=== PATIENT | female | born 1950 | race Caucasian/White ===

== ENCOUNTER 2017-11-11 17:23 | Emergency (ER) | payer MEDICARE ==
[2017-11-11] MEDS: PERCOCET 5MG/325MG TAB PO (19:30)
[2017-11-11] MEDS: ALBUTEROL SULFATE 2.5 MG/0.5 ML INH NEB SOLN NEB (19:58)
[2017-11-11] MEDS: OXYCODONE/APAP 5MG/325MG(BULK FOR ED) 1 TABLET PO (20:45)
== END 2017-11-11 21:04 | disposition home or self-care (01) ==
LOC: M ED 17:23
DX: J18.1 Lobar pneumonia, unspecified organism (principal); S20.212A Contusion of left front wall of thorax, initial encounter; W19.XXXA Unspecified fall, initial encounter; Y92.89 Other specified places as the place of occurrence of the external cause; Y93.89 Activity, other specified; Y99.8 Other external cause status; I10 Essential (primary) hypertension; E78.5 Hyperlipidemia, unspecified; J44.9 Chronic obstructive pulmonary disease, unspecified; E03.9 Hypothyroidism, unspecified; F41.9 Anxiety disorder, unspecified; F33.9 Major depressive disorder, recurrent, unspecified; Z79.899 Other long term (current) drug therapy; Z88.0 Allergy status to penicillin
CPT/HCPCS: 71101

== ENCOUNTER → 2017-11-19 | Outpatient (CLI) | payer MEDICARE | LOC: M RAD 12:57 | DX: J18.9 Pneumonia, unspecified organism (principal) | CPT/HCPCS: 71046 ==

== ENCOUNTER → 2019-09-28 | Outpatient (CLI) | payer MEDICARE ==
[~2019-09-28] MED LIST: AMLO10TA5; ATOR1TAB21; COMBAER6 INH; HYDR12CA; HYDR1CAP25; LEVO125T4; LOSA100T50; PARO40TA2; PERC5TAB12 PO; SPIR1CAP INH; ZITHTAB PO
--- NOTE | 2019-09-28 10:23 | REP ---
Clinical: Lung screening. History smoking. Comparison: 10/06/2013 Technique: Axial low-dose noncontrast images from the thoracic inlet to the upper abdomen using lung screening technique. Findings: The lung castellanos are well-aerated. No consolidation, significant nodule or mass lesion is appreciated. Calcified nodule in the right upper lobe along with noncalcified nodule along the medial subpleural right lower lobe (image 55) remains stable. No pleural effusion/reaction or pneumothorax. Tracheobronchial tree is patent. Mediastinum demonstrates mild atherosclerotic changes of the coronary arteries without cardiomegaly. Impression: Lung-RADS category I. No significant nodule or suspicious abnormality. Management recommendations include annual low-dose CT reevaluation. Electronically Signed by Fam Reyna MD 09/28/2019 10:15 A
== END ==
LOC: M RAD 09:24
PROVIDERS: ATTEND Internal Medicine
DX: F17.210 Nicotine dependence, cigarettes, uncomplicated (principal)

== ENCOUNTER 2019-10-21 09:41 | Day surgery (SDC) | payer MEDICARE ==
[~2019-10-21] VITALS: Ht 170.2 cm; Wt 77.1 kg
[~2019-10-21 09:41] MED LIST changes: -AMLO10TA5; +AMLO10TA5 PO; -ATOR1TAB21; +ATOR1TAB21 PO; -HYDR1CAP25; +HYDR1CAP25 PO; +LIDOCAINE 2% INJ 100 MG/5 ML SDV (FOR ANES.) As Ordered ONE; -LOSA100T50; +LOSA100T50 PO; +NS 1,000 ML IV ONE; -PARO40TA2; +PARO40TA2 PO; +PROPOFOL 200 MG/20 ML VIAL As Ordered ONE; +SYNT150T PO
[2019-10-21] MEDS ORDERED: PROPOFOL 200 MG/20 ML VIAL As Ordered ONE ×2 (10:50→11:06)
--- NOTE | 2019-10-21 11:32 | ROOR ---
Patient Name: Rose Gil Procedure Date: 10/21/2019 10:39 AM Date of : 1950 Age: 69 Room: [facility] Gender: Female Note Status: Finalized Procedure: Total Colonoscopy to Cecum + Cold Snare Polypectomy + Hemoclips Indications: Screening for colorectal malignant neoplasm Providers: Kyle Castellanos MD Referring MD: Sally Schultz DO Requesting Provider: Medicines: Monitored Anesthesia Care Complications: No immediate complications. Procedure: Pre-Anesthesia Assessment: - The heart rate, respiratory rate, oxygen saturations, blood pressure, adequacy of pulmonary ventilation, and response to care were monitored throughout the procedure. The Colonoscope was introduced through the anus and advanced to the cecum, identified by appendiceal orifice and ileocecal valve. The colonoscopy was performed without difficulty. The patient tolerated the procedure well. The quality of the bowel preparation was excellent. Findings: The perianal and digital rectal examinations were normal. Non-bleeding internal hemorrhoids were found during retroflexion. The hemorrhoids were small and Grade I (internal hemorrhoids that do not prolapse). Scattered small-mouthed diverticula were found in the recto-sigmoid colon, sigmoid colon and descending colon. A small polyp was found in the transverse colon. The polyp was sessile. The polyp was removed with a cold snare. Resection and retrieval were complete. To prevent bleeding after the polypectomy, one hemostatic clip was successfully placed (MR conditional). There was no bleeding at the end of the procedure. A small polyp was found in the hepatic flexure. The polyp was sessile. The polyp was removed with a cold snare. Resection and retrieval were complete. To prevent bleeding after the polypectomy, one hemostatic clip was successfully placed (MR conditional). There was no bleeding at the end of the procedure. The exam was otherwise without abnormality on direct and retroflexion views. Multiple small localized angioectasias were found in the ascending colon. Impression: - Non-bleeding internal hemorrhoids. - Diverticulosis in the recto-sigmoid colon, in the sigmoid colon and in the descending colon. - One small polyp in the transverse colon, removed with a cold snare. Resected and retrieved. Clip (MR conditional) was placed. - One small polyp at the hepatic flexure, removed with a cold snare. Resected and retrieved. Clip (MR conditional) was placed. - The examination was otherwise normal on direct and retroflexion views. - Multiple colonic angioectasias. - The exam was otherwise normal to the cecum. Recommendation: - Patient has a contact number available for emergencies. The signs and symptoms of potential delayed complications were discussed with the patient. Return to normal activities tomorrow. Written discharge instructions were provided to the patient. - High fiber diet. - Discharge patient to home. - Continue present medications. - Await pathology results. - Telephone GI clinic for pathology results in 1 week. - Repeat colonoscopy in 5 years for surveillance based on pathology results. - Return to referring physician. - The findings and recommendations were discussed with the patient's family. Kyle Castellanos MD Kyle Castellanos MD 10/21/2019 11:31:58 AM Electronically signed by Kyle Castellanos MD Number of Addenda: 0 Note Initiated On: 10/21/2019 10:39 AM Estimated Blood Loss: Estimated blood loss: none.
[2019-10-21 11:45] VITALS: BP 143/73
== END 2019-10-22 12:01 | disposition home or self-care (01) ==
LOC: M OPP 09:41
PROVIDERS: ATTEND Internal Medicine Gastroenterology
DX: Z12.11 Encounter for screening for malignant neoplasm of colon (principal); K64.0 First degree hemorrhoids; D12.3 Benign neoplasm of transverse colon; K55.20 Angiodysplasia of colon without hemorrhage; K57.30 Diverticulosis of large intestine without perforation or abscess without bleeding; F17.210 Nicotine dependence, cigarettes, uncomplicated; Z79.899 Other long term (current) drug therapy; Z88.0 Allergy status to penicillin

== ENCOUNTER 2021-11-21 11:24 | Inpatient (IN) | payer MEDICARE ==
[~2021-11-21] VITALS: Ht 170.2 cm; Wt 80.4 kg
[~2021-11-21 11:24] MED LIST changes: -AMLO10TA5 PO; +AMLO1TAB25 PO; -LIDOCAINE 2% INJ 100 MG/5 ML SDV (FOR ANES.) As Ordered ONE; +LOSA100T45 PO; -LOSA100T50 PO; -NS 1,000 ML IV ONE; -PROPOFOL 200 MG/20 ML VIAL As Ordered ONE
[2021-11-21] MEDS ORDERED: ALBU8.5H (12:00)
[2021-11-21] MEDS ORDERED: ALBUTEROL 90 MCG/ACT 8GM HFA INHALER INH ONE (16:55)
[2021-11-21] MEDS ORDERED: methylPREDNISolone 125MG 2ML VIAL IV ONE (16:55)
[2021-11-21] MEDS ORDERED: NS 1,000 ML IV ONE (16:55)
[2021-11-21 17:34] LABS: BASO # 0.1 10^3/uL (0.0-0.2); BASO % 0.6 % (0.0-1.0); EOS # 0.1 10^3/uL (0.0-0.5); EOS % 0.7 % (0.0-3.0); HEMATOCRIT 45.6 % (36.0-47.0); LYMPH # 2.1 10^3/uL (1.5-5.0); LYMPH % 25.2 % (24.0-44.0); MEAN CORPUSCULAR HEMOGLOBIN 29.8 pg (27.0-33.0); MEAN CORPUSCULAR HGB CONC 32.9 g/dl (32.0-36.5); MEAN CORPUSCULAR VOLUME 90.7 fl (80.0-96.0); MONO % 11.4 % (2.0-8.0); NEUTROPHILS # 5.2 10^3/uL (1.5-8.5); NEUTROPHILS % 61.7 % (36.0-66.0); PLATELET COUNT, AUTOMATED 194 10^3/uL (150-450); RED BLOOD COUNT 5.03 10^6/uL (4.00-5.40); WHITE BLOOD COUNT 8.4 10^3/uL (4.0-10.0)
[2021-11-21 18:17] LABS: BILIRUBIN,DIRECT 0.1 MG/DL (0.0-0.2); BILIRUBIN,TOTAL 0.4 MG/DL (0.2-1.0); CALCIUM LEVEL 9.2 MG/DL (8.8-10.2); CREATININE FOR GFR 1.04 MG/DL (0.55-1.30); GLOMERULAR FILTRATION RATE 55.6 (>39); POTASSIUM SERUM 3.8 MEQ/L (3.5-5.1); THYROID STIMULATING HORMONE 0.4 uIU/ML (0.358-3.740); THYROXINE (T4) 15.8 UG/DL (4.5-12.0); TOTAL PROTEIN 7.5 GM/DL (6.4-8.2)
[2021-11-21] MEDS ORDERED: MOM 30ML SUSPENSION UDC PO PRN (20:30)
[2021-11-21] MEDS ORDERED: LEVALBUTEROL 1.25 MG/0.5 ML CONCENTRATE NEB NEB PRN (20:30)
[2021-11-21] MEDS ORDERED: MAALOX 30 ML SUSP *UDC PO PRN (20:30)
[2021-11-21] MEDS ORDERED: ACETAMINOPHEN TAB 650MG DOSE (2X325MG) PO PRN (20:30)
[2021-11-21 20:51] LABS: MAGNESIUM LEVEL 2.3 MG/DL (1.8-2.4)
[2021-11-21] MEDS: IPRATROPIUM 0.5MG/ALBUTEROL 2.5MG INH SOL UD 3ML (DUONEB) NEB SCH (21:14)
[2021-11-21 21:28] LABS: INR 0.96; PROTHROMBIN TIME 13.2 SECONDS (12.7-14.5)
[2021-11-21 21:29] LABS: PARTIAL THROMBOPLASTIN TIME 39.3 SECONDS (25.9-37.0)
[2021-11-21] MEDS ORDERED: PROAAER10 INH (21:50)
[2021-11-21] MEDS ORDERED: AMLO1TAB25 PO (21:50)
[2021-11-21] MEDS ORDERED: HOME MED LIST COMPLETE! XX SCH (21:50)
[2021-11-21] MEDS ORDERED: LOSA100T45 PO (21:50)
[2021-11-21] MEDS ORDERED: PARO40TA2 PO (21:50)
[2021-11-21] MEDS ORDERED: COMBAER6 INH (21:50)
[2021-11-21] MEDS ORDERED: SYNT137T7 PO (21:50)
[2021-11-21] MEDS ORDERED: ATOR40TA75 PO (21:50)
[2021-11-21 22:45] VITALS: BP 134/81
[2021-11-21] MEDS: DOXYCYCLINE HYCLATE 100MG TABLET PO SCH (23:05)
[2021-11-21 23:15] VITALS: O2SAT 92
[2021-11-22] VITALS (8 sets, daily range): BP systolic 133–167; BP diastolic 62–78; O2SAT 86–93
[2021-11-22] MEDS: methylPREDNISolone 40MG 1ML VIAL IV SCH ×3 (00:16→17:17)
[2021-11-22] MEDS: IPRATROPIUM 0.5MG/ALBUTEROL 2.5MG INH SOL UD 3ML (DUONEB) NEB SCH ×4 (02:53→19:39)
[2021-11-22] MEDS: LEVOTHYROXINE 137MCG TABLET (0.137MG) PO SCH (05:30)
[2021-11-22 07:14] LABS: HEMATOCRIT 44.8 % (36.0-47.0); HEMOGLOBIN 14.4 g/dl (12.0-15.5); MEAN CORPUSCULAR HEMOGLOBIN 29.6 pg (27.0-33.0); MEAN CORPUSCULAR HGB CONC 32.1 g/dl (32.0-36.5); MEAN CORPUSCULAR VOLUME 92.2 fl (80.0-96.0); PLATELET COUNT, AUTOMATED 180 10^3/uL (150-450); RED BLOOD COUNT 4.86 10^6/uL (4.00-5.40); WHITE BLOOD COUNT 5.7 10^3/uL (4.0-10.0)
[2021-11-22 07:41] LABS: BLOOD UREA NITROGEN 14 MG/DL (7-18); CALCIUM LEVEL 8.9 MG/DL (8.8-10.2); CARBON DIOXIDE LEVEL 24 MEQ/L (21-32); CHLORIDE LEVEL 110 MEQ/L (98-107); CREATININE FOR GFR 0.84 MG/DL (0.55-1.30); GLOMERULAR FILTRATION RATE > 60.0 (>39); GLUCOSE, FASTING 161 MG/DL (70-100); MAGNESIUM LEVEL 2.3 MG/DL (1.8-2.4); POTASSIUM SERUM 3.9 MEQ/L (3.5-5.1); SODIUM LEVEL 141 MEQ/L (136-145)
[2021-11-22] MEDS: PARoxetine 20MG TABLET PO SCH (09:26)
[2021-11-22] MEDS: DOXYCYCLINE HYCLATE 100MG TABLET PO SCH (09:26)
[2021-11-22] MEDS: LOSARTAN 50MG TABLET PO SCH (09:26)
[2021-11-22] MEDS: ATORVASTATIN 20 MG TAB PO SCH (09:26)
[2021-11-22] MEDS: ENOXAPARIN 40MG/0.4ML SYRINGE (J1650 PER 10MG) SC SCH (09:27)
[2021-11-23] MEDS: methylPREDNISolone 40MG 1ML VIAL IV SCH ×3 (00:56→18:38)
[2021-11-23 01:22] VITALS: O2SAT 91
[2021-11-23] MEDS: IPRATROPIUM 0.5MG/ALBUTEROL 2.5MG INH SOL UD 3ML (DUONEB) NEB SCH ×4 (02:00→20:45)
[2021-11-23] MEDS: LEVOTHYROXINE 137MCG TABLET (0.137MG) PO SCH (05:24)
[2021-11-23 06:00] VITALS: BP 150/65
[2021-11-23 06:10] LABS: HEMATOCRIT 46.2 % (36.0-47.0); HEMOGLOBIN 14.7 g/dl (12.0-15.5); MEAN CORPUSCULAR HEMOGLOBIN 29.8 pg (27.0-33.0); MEAN CORPUSCULAR HGB CONC 31.8 g/dl (32.0-36.5); MEAN CORPUSCULAR VOLUME 93.7 fl (80.0-96.0); PLATELET COUNT, AUTOMATED 225 10^3/uL (150-450); RED BLOOD COUNT 4.93 10^6/uL (4.00-5.40)
[2021-11-23 06:29] LABS: BLOOD UREA NITROGEN 20 MG/DL (7-18); CALCIUM LEVEL 9.3 MG/DL (8.8-10.2); CARBON DIOXIDE LEVEL 28 MEQ/L (21-32); CHLORIDE LEVEL 107 MEQ/L (98-107); CREATININE FOR GFR 0.91 MG/DL (0.55-1.30); GLOMERULAR FILTRATION RATE > 60.0 (>39); GLUCOSE, FASTING 136 MG/DL (70-100); MAGNESIUM LEVEL 2.4 MG/DL (1.8-2.4); POTASSIUM SERUM 3.9 MEQ/L (3.5-5.1); SODIUM LEVEL 140 MEQ/L (136-145)
[2021-11-23 07:43] LABS: BASO % 0.1 % (0.0-1.0); EOS % 0.1 % (0.0-3.0); LYMPH # 1.4 10^3/uL (1.5-5.0); LYMPH % 6.1 % (24.0-44.0); MONO # 0.6 10^3/uL (0.0-0.8); MONO % 2.6 % (2.0-8.0); NEUTROPHILS # 20.8 10^3/uL (1.5-8.5); NEUTROPHILS % 90.2 % (36.0-66.0)
[2021-11-23] MEDS: PARoxetine 20MG TABLET PO SCH (09:21)
[2021-11-23] MEDS: ATORVASTATIN 20 MG TAB PO SCH (09:21)
[2021-11-23] MEDS: ENOXAPARIN 40MG/0.4ML SYRINGE (J1650 PER 10MG) SC SCH (09:22)
[2021-11-23] MEDS: LOSARTAN 50MG TABLET PO SCH (09:22)
[2021-11-23 14:00] VITALS: BP 131/73
[2021-11-23 22:00] VITALS: BP 134/72
[2021-11-24] MEDS: methylPREDNISolone 40MG 1ML VIAL IV SCH ×2 (01:20→09:50)
[2021-11-24] MEDS: IPRATROPIUM 0.5MG/ALBUTEROL 2.5MG INH SOL UD 3ML (DUONEB) NEB SCH ×2 (01:29→07:51)
[2021-11-24] MEDS: LEVOTHYROXINE 137MCG TABLET (0.137MG) PO SCH (05:38)
[2021-11-24 05:54] VITALS: BP 133/65
[2021-11-24 06:48] LABS: HEMATOCRIT 44.1 % (36.0-47.0); HEMOGLOBIN 13.8 g/dl (12.0-15.5); MEAN CORPUSCULAR HEMOGLOBIN 29.2 pg (27.0-33.0); MEAN CORPUSCULAR HGB CONC 31.3 g/dl (32.0-36.5); MEAN CORPUSCULAR VOLUME 93.2 fl (80.0-96.0); PLATELET COUNT, AUTOMATED 198 10^3/uL (150-450); RED BLOOD COUNT 4.73 10^6/uL (4.00-5.40); WHITE BLOOD COUNT 17.6 10^3/uL (4.0-10.0)
[2021-11-24 07:16] LABS: BLOOD UREA NITROGEN 24 MG/DL (7-18); CALCIUM LEVEL 8.9 MG/DL (8.8-10.2); CARBON DIOXIDE LEVEL 25 MEQ/L (21-32); CHLORIDE LEVEL 107 MEQ/L (98-107); CREATININE FOR GFR 0.93 MG/DL (0.55-1.30); GLOMERULAR FILTRATION RATE > 60.0 (>39); GLUCOSE, FASTING 141 MG/DL (70-100); MAGNESIUM LEVEL 2.4 MG/DL (1.8-2.4); POTASSIUM SERUM 3.7 MEQ/L (3.5-5.1); SODIUM LEVEL 141 MEQ/L (136-145)
[2021-11-24] MEDS: ENOXAPARIN 40MG/0.4ML SYRINGE (J1650 PER 10MG) SC SCH (09:00)
[2021-11-24 09:50] VITALS: BP 152/99
[2021-11-24] MEDS: LOSARTAN 50MG TABLET PO SCH (09:50)
[2021-11-24] MEDS: ATORVASTATIN 20 MG TAB PO SCH (09:50)
[2021-11-24] MEDS: PARoxetine 20MG TABLET PO SCH (09:50)
[2021-11-24] MEDS ORDERED: guaiFENesin ER 600 MG TAB PO SCH (10:00)
[2021-11-24] MEDS ORDERED: PRED10TA2 PO (11:15)
[2021-11-24] MEDS ORDERED: MUCI600T31 PO (11:15)
== END 2021-11-24 14:16 | disposition home or self-care (01) | DRG 192 ==
LOC: M ED 11:24 → M ED INP 20:28 → M MSPAV 22:43
PROVIDERS: ADMIT Internal Medicine; ATTEND Internal Medicine
DX: J44.1 Chronic obstructive pulmonary disease with (acute) exacerbation (principal); I10 Essential (primary) hypertension; E78.5 Hyperlipidemia, unspecified; E03.9 Hypothyroidism, unspecified; F32.A Depression, unspecified; F41.9 Anxiety disorder, unspecified; J06.9 Acute upper respiratory infection, unspecified; B97.29 Other coronavirus as the cause of diseases classified elsewhere; K59.00 Constipation, unspecified; F17.200 Nicotine dependence, unspecified, uncomplicated; Z88.0 Allergy status to penicillin; Z86.718 Personal history of other venous thrombosis and embolism; Z79.899 Other long term (current) drug therapy

== ENCOUNTER → 2021-12-04 | Outpatient (REF) | payer MEDICARE ==
[~2021-12-04] MED LIST changes: +ALBU8.5H; +ATOR40TA75 PO; +MUCI600T31 PO; +PRED10TA2 PO; +PROAAER10 INH; +SYNT137T7 PO
== END ==
LOC: M LAB REF 16:21
PROVIDERS: ATTEND Internal Medicine
DX: R79.82 Elevated C-reactive protein (CRP) (principal)

== ENCOUNTER → 2022-08-29 | Outpatient (REF) | payer MEDICARE, MEDICAID | LOC: M LAB REF 13:25 | PROVIDERS: ATTEND Ophthalmology | DX: H02.9 Unspecified disorder of eyelid (principal) ==

== ENCOUNTER → 2023-01-09 | Outpatient (CLI) | payer MEDICARE, MEDICAID ==
[~2023-01-09] MED LIST changes: +ONETAB20 PO; +PROA1AER2 IN
== END ==
LOC: M LABSMTC 11:43
PROVIDERS: ATTEND Anesthesiology
DX: Z01.818 Encounter for other preprocedural examination (principal)

== ENCOUNTER 2023-01-14 08:29 | Day surgery (SDC) | payer MEDICARE, MEDICAID ==
[~2023-01-14] VITALS: Ht 170.2 cm; Wt 80.3 kg
[~2023-01-14 08:29] MED LIST changes: +BSS IRRIG/VANCO(10MG)/TOBRA(5MG)/EPINEPH(1:1000-0.5CC)500ML BAG-ORONLY IR ONE; +CEFUROXIME 1MG/0.1ML INTRACAMERAL INJ As Ordered ONE; +CYCLOPENTOLATE 1% OPHTH SOLN 2ML BTL OS SCH; +LIDOCAINE 1% SDV 5ML VIAL As Ordered ONE; +LIDOCAINE 3.5 % 1ML OPHTH TOPICAL GEL OU ONE; +OFLOXACIN 0.3 % (OCUFLOX) OPTH SOL 5ML OS ONE; +PHENYLEPHRINE 10% OPHTH SOL 5ML OS PRN; +PHENYLEPHRINE 2.5% OPHTH SOL 2ML OS SCH; +TROPICAMIDE 1% OPHTH SOLN 15ML OS SCH
[2023-01-14] MEDS ORDERED: fentaNYL 100 MCG/2 ML INJECTION As Ordered ONE (10:04)
[2023-01-14] MEDS ORDERED: MIDAZOLAM INJ 2MG/2ML VIAL As Ordered ONE (10:04)
[2023-01-14 10:22] VITALS: BP 140/63
[2023-01-14] MEDS ORDERED: ACETYLCHOLINE OPHTH SOLN 1% 2ML (MIOCHOL-E) As Ordered ONE (11:18)
== END 2023-01-14 10:57 | disposition home or self-care (01) ==
LOC: M SDC 08:29
PROVIDERS: ATTEND Ophthalmology
DX: H25.12 Age-related nuclear cataract, left eye (principal); I10 Essential (primary) hypertension; E78.5 Hyperlipidemia, unspecified; Z86.718 Personal history of other venous thrombosis and embolism; F32.A Depression, unspecified; Z98.51 Tubal ligation status; J44.9 Chronic obstructive pulmonary disease, unspecified; Z90.89 Acquired absence of other organs; F17.210 Nicotine dependence, cigarettes, uncomplicated; Z88.0 Allergy status to penicillin; Z79.899 Other long term (current) drug therapy; E03.9 Hypothyroidism, unspecified
CPT/HCPCS: 66982; J2250; J3010; V2632

== ENCOUNTER → 2023-06-13 | Outpatient (CLI) | payer MEDICARE, MEDICAID ==
[~2023-06-13] MED LIST changes: -BSS IRRIG/VANCO(10MG)/TOBRA(5MG)/EPINEPH(1:1000-0.5CC)500ML BAG-ORONLY IR ONE; -CEFUROXIME 1MG/0.1ML INTRACAMERAL INJ As Ordered ONE; -CYCLOPENTOLATE 1% OPHTH SOLN 2ML BTL OS SCH; -LIDOCAINE 1% SDV 5ML VIAL As Ordered ONE; -LIDOCAINE 3.5 % 1ML OPHTH TOPICAL GEL OU ONE; -LOSA100T45 PO; +LOSA100T46 PO; -OFLOXACIN 0.3 % (OCUFLOX) OPTH SOL 5ML OS ONE; -PHENYLEPHRINE 10% OPHTH SOL 5ML OS PRN; -PHENYLEPHRINE 2.5% OPHTH SOL 2ML OS SCH; -TROPICAMIDE 1% OPHTH SOLN 15ML OS SCH
== END ==
LOC: M RAD 09:30
PROVIDERS: ATTEND Physician Assistant
DX: L97.522 Non-pressure chronic ulcer of other part of left foot with fat layer exposed (principal)

== ENCOUNTER → 2023-09-07 | Outpatient (CLI) | payer MEDICARE ==
[2023-09-07 12:07] LABS: BLOOD UREA NITROGEN 15 MG/DL (9-23); CREATININE FOR GFR 0.82 MG/DL (0.55-1.30); GLOMERULAR FILTRATION RATE > 60.0 (>39)
== END ==
LOC: M LAB 11:14
PROVIDERS: ATTEND Surgery Vascular Surgery
DX: Z01.818 Encounter for other preprocedural examination (principal)

== ENCOUNTER → 2023-09-11 | Outpatient (CLI) | payer MEDICARE, MEDICAID ==
[~2023-09-11] MED LIST changes: +ISOVUE-370 76% 100ML VIAL As Ordered ONE
== END ==
LOC: M RAD 12:16
PROVIDERS: ATTEND Surgery Vascular Surgery
DX: I65.22 Occlusion and stenosis of left carotid artery (principal)
CPT/HCPCS: 75635; 93880; Q9967

== ENCOUNTER 2023-09-27 11:09 | Emergency (ER) | payer MEDICARE, MEDICAID ==
[~2023-09-27] VITALS: Ht 170.2 cm; Wt 79.5 kg
[~2023-09-27 11:09] MED LIST changes: -ISOVUE-370 76% 100ML VIAL As Ordered ONE
[2023-09-27 11:10] VITALS: BP 136/68; TEMP 98.1
[2023-09-27] MEDS ORDERED: NORCO, ANEXSIA 5/325MG TABLET (HYDROcodone/ACETAMINOPHEN) PO ONE (12:15)
[2023-09-27 12:18] VITALS: O2SAT 97
[2023-09-27] MEDS ORDERED: HYDR-3713 PO (12:25)
== END 2023-09-27 12:25 | disposition home or self-care (01) ==
LOC: M ED 11:09
DX: S52.134A Nondisplaced fracture of neck of right radius, initial encounter for closed fracture (principal); W19.XXXA Unspecified fall, initial encounter; I10 Essential (primary) hypertension; E78.5 Hyperlipidemia, unspecified; J44.9 Chronic obstructive pulmonary disease, unspecified; E03.9 Hypothyroidism, unspecified; F32.9 Major depressive disorder, single episode, unspecified; F17.200 Nicotine dependence, unspecified, uncomplicated; Z79.899 Other long term (current) drug therapy; Z88.0 Allergy status to penicillin

== ENCOUNTER → 2023-11-29 | Outpatient (REF) | payer MEDICARE, MEDICAID ==
[~2023-11-29] MED LIST changes: +HYDR-3713 PO
[2023-11-29 13:36] LABS: INR 0.95; PROTHROMBIN TIME 12.4 SECONDS (12.5-14.5)
[2023-11-29 13:37] LABS: PARTIAL THROMBOPLASTIN TIME 40.2 SECONDS (24.8-34.2)
== END ==
LOC: M LAB REF 12:17
PROVIDERS: ATTEND Internal Medicine
DX: I73.9 Peripheral vascular disease, unspecified (principal); Z79.01 Long term (current) use of anticoagulants

== ENCOUNTER → 2023-12-12 | Outpatient (CLI) | payer MEDICARE, MEDICAID | LOC: M RAD 10:42 | PROVIDERS: ATTEND Internal Medicine | DX: I73.9 Peripheral vascular disease, unspecified (principal) ==

== ENCOUNTER 2024-05-18 10:23 | Day surgery (SDC) | payer MEDICARE, MEDICAID ==
[~2024-05-18] VITALS: Ht 171.4 cm; Wt 85.7 kg
[~2024-05-18 10:23] MED LIST changes: +ASPI81TA26 PO; +BRIM1OPD OU; +XALA0.007 OU
[2024-05-18] MEDS: NS 1,000 ML IV ONE (10:42)
[2024-05-18] MEDS ORDERED: fentaNYL 100 MCG/2 ML INJECTION As Ordered ONE (11:54)
[2024-05-18] MEDS ORDERED: propofoL 500 MG/50 ML VIAL As Ordered ONE (11:54)
[2024-05-18] MEDS ORDERED: ePHEDrine SULFATE 25 MG/5 ML(5MG/ML) SYRINGE As Ordered ONE (11:54)
[2024-05-18] MEDS ORDERED: PHENYLephrine 500MCG 5ML (100MCG/ML) SYRINGE As Ordered ONE (11:54)
[2024-05-18] MEDS ORDERED: LIDOCAINE 2% 100MG/5ML SDV (FOR ANES.) As Ordered ONE (11:54)
[2024-05-18 12:41] VITALS: BP 142/82
[2024-05-18] MEDS: ALBUTEROL SULFATE 2.5MG/0.5ML INH NEB SOLN NEB ONE (12:54)
[2024-05-18 13:02] VITALS: O2SAT 99
== END 2024-05-18 12:57 | disposition home or self-care (01) ==
LOC: M OPP 10:23
PROVIDERS: ATTEND Internal Medicine Gastroenterology
DX: Z86.010 Personal history of colon polyps (principal); D12.6 Benign neoplasm of colon, unspecified; K63.5 Polyp of colon; K64.0 First degree hemorrhoids; K57.30 Diverticulosis of large intestine without perforation or abscess without bleeding; K44.9 Diaphragmatic hernia without obstruction or gangrene; K31.89 Other diseases of stomach and duodenum; K31.A19 Gastric intestinal metaplasia without dysplasia, unspecified site; R93.3 Abnormal findings on diagnostic imaging of other parts of digestive tract; R12 Heartburn; E05.90 Thyrotoxicosis, unspecified without thyrotoxic crisis or storm; Z79.02 Long term (current) use of antithrombotics/antiplatelets; Z79.51 Long term (current) use of inhaled steroids; Z79.890 Hormone replacement therapy; Z79.899 Other long term (current) drug therapy; Z88.0 Allergy status to penicillin
CPT/HCPCS: 43239; 45385; 88305; J2371; J3010

== ENCOUNTER 2024-12-22 17:29 | Observation (INO) | payer MEDICARE, MEDICAID ==
[~2024-12-22] VITALS: Ht 170.2 cm; Wt 85.5 kg
[2024-12-22] MEDS ORDERED: PRED20TA PO (17:45)
[2024-12-22] MEDS ORDERED: ALBU2.5V10 INH (17:45)
[2024-12-22] MEDS ORDERED: TIMO0.5S20 OU (17:45)
[2024-12-22] MEDS: IPRATROPIUM 0.5MG/ALBUTEROL 2.5MG INH SOL UD 3ML (DUONEB) NEB ONE (18:31)
[2024-12-22 18:47] LABS: ABG BASE EXCESS 2.7 (-2.0-2.0); ABG HCO3 26.4 MMOL/L (22.0-26.0); ABG O2 SATURATION 94.3 % (95.0-99.0); ABG PARTIAL PRESSURE O2 71.1 mmHg (75.0-100.0); ABG STANDARD HCO3 26.7 MMOL/L. (22.0-26.0); ABG TOTAL CO2 27.6 MMOL/L (23.0-31.0)
[2024-12-22 20:09] LABS: BASO % 0.3 % (0.0-1.0); EOS # 0.1 10^3/uL (0.0-0.5); EOS % 0.4 % (0.0-3.0); HEMATOCRIT 44.4 % (36.0-47.0); LYMPH # 0.9 10^3/uL (1.5-5.0); LYMPH % 5.9 % (24.0-44.0); MEAN CORPUSCULAR HEMOGLOBIN 29.5 pg (27.0-33.0); MEAN CORPUSCULAR HGB CONC 33.8 g/dl (32.0-36.5); MEAN CORPUSCULAR VOLUME 87.4 fl (80.0-96.0); MONO # 0.8 10^3/uL (0.0-0.8); MONO % 5.2 % (2.0-8.0); NEUTROPHILS # 13.4 10^3/uL (1.5-8.5); NEUTROPHILS % 85.3 % (36.0-66.0); PLATELET COUNT, AUTOMATED 223 10^3/uL (150-450); RED BLOOD COUNT 5.08 10^6/uL (4.00-5.40); WHITE BLOOD COUNT 15.7 10^3/uL (4.0-10.0)
[2024-12-22 20:34] LABS: BLOOD UREA NITROGEN 26 MG/DL (9-23); CALCIUM LEVEL 9.1 MG/DL (8.3-10.6); CARBON DIOXIDE LEVEL 32 MMOL/L (20-31); CHLORIDE LEVEL 99 MMOL/L (98-107); GLOMERULAR FILTRATION RATE > 60.0 (>39); GLUCOSE, FASTING 142 MG/DL (74-106); POTASSIUM SERUM 4.5 MMOL/L (3.5-5.1); SODIUM LEVEL 137 MMOL/L (136-145)
[2024-12-22 21:54] VITALS: O2SAT 91
[2024-12-22 23:22] LABS: CK-MB VALUE MASS 1.2 NG/ML (<3.6)
[2024-12-22 23:23] LABS: CPK CREATINE PHOSPHOKINASE 43 U/L (34-145); MB/CK RELATIVE INDEX 2.79 (< OR =4)
[2024-12-23] VITALS (7 sets, daily range): BP systolic 132–134; BP diastolic 67; TEMP 97.7–98.1; O2SAT 88–96
[2024-12-23] MEDS ORDERED: ASPI-226 PO (05:39)
[2024-12-23] MEDS ORDERED: ALBU8.5H INH (05:39)
[2024-12-23] MEDS ORDERED: LEVO150T7 PO (05:39)
[2024-12-23] MEDS ORDERED: HOME MED LIST COMPLETE! XX SCH (05:40)
[2024-12-23] MEDS: IPRATROPIUM 0.5MG/ALBUTEROL 2.5MG INH SOL UD 3ML (DUONEB) NEB ONE (05:43)
[2024-12-23] MEDS ORDERED: ACETAMINOPHEN 325 MG TAB PO PRN (05:45)
[2024-12-23] MEDS: methylPREDNISolone 125MG 2ML VIAL IV STA (05:58)
[2024-12-23] MEDS: LevoFLOXacin IV 500 MG in IV 1 EA IV SCH (05:58)
[2024-12-23] MEDS: guaiFENesin ER TABLET 600 MG TAB PO SCH (06:41)
[2024-12-23] MEDS: IPRATROPIUM 0.5MG/ALBUTEROL 2.5MG INH SOL UD 3ML (DUONEB) NEB SCH (07:28)
[2024-12-23 07:55] LABS: BASO # 0.1 10^3/uL (0.0-0.2); BASO % 0.3 % (0.0-1.0); EOS # 0.1 10^3/uL (0.0-0.5); EOS % 0.3 % (0.0-3.0); HEMATOCRIT 46.6 % (36.0-47.0); HEMOGLOBIN 15.5 g/dl (12.0-15.5); LYMPH # 1.1 10^3/uL (1.5-5.0); LYMPH % 6.6 % (24.0-44.0); MEAN CORPUSCULAR HEMOGLOBIN 29.3 pg (27.0-33.0); MEAN CORPUSCULAR HGB CONC 33.3 g/dl (32.0-36.5); MEAN CORPUSCULAR VOLUME 88.1 fl (80.0-96.0); MONO % 5.7 % (2.0-8.0); NEUTROPHILS # 14.3 10^3/uL (1.5-8.5); NEUTROPHILS % 85.3 % (36.0-66.0); PLATELET COUNT, AUTOMATED 266 10^3/uL (150-450); RED BLOOD COUNT 5.29 10^6/uL (4.00-5.40); WHITE BLOOD COUNT 16.8 10^3/uL (4.0-10.0)
[2024-12-23] MEDS: SYMBICORT 160/4.5MCG INHALER 6GM INH SCH (08:00)
[2024-12-23 08:23] LABS: FREE T4 1.63 NG/DL (0.89-1.76); THYROID STIMULATING HORMONE 1.111 uIU/ML (0.55-4.78)
[2024-12-23 08:33] LABS: ALBUMIN 3.4 G/DL (3.2-5.2); ALKALINE PHOSPHATASE 71 U/L (35-104); ALT/SGPT 64 U/L (7.0-40); AST/SGOT 25 U/L (<34); BILIRUBIN,TOTAL 0.6 MG/DL (0.3-1.2); BLOOD UREA NITROGEN 27 MG/DL (9-23); C REACTIVE PROTEIN QUANTITATIV < 0.50 MG/DL (<1.0); CALCIUM LEVEL 8.9 MG/DL (8.3-10.6); CARBON DIOXIDE LEVEL 32 MMOL/L (20-31); CHLORIDE LEVEL 97 MMOL/L (98-107); CREATININE FOR GFR 0.78 MG/DL (0.55-1.30); GLOMERULAR FILTRATION RATE > 60.0 (>39); GLUCOSE, FASTING 103 MG/DL (74-106); MAGNESIUM LEVEL 2.3 MG/DL (1.8-2.4); POTASSIUM SERUM 4.9 MMOL/L (3.5-5.1); SODIUM LEVEL 137 MMOL/L (136-145); TOTAL PROTEIN 6.8 G/DL (5.7-8.2)
[2024-12-23 08:45] LABS: PROCALCITONIN 0.04 ng/ml
[2024-12-23] MEDS: ATORVASTATIN 20 MG TAB PO SCH (08:50)
[2024-12-23] MEDS: LOSARTAN 50MG TABLET PO SCH (08:51)
[2024-12-23] MEDS: PANTOPRAZOLE 40MG VIAL IV SCH (08:51)
[2024-12-23] MEDS: ENOXAPARIN 40MG/0.4ML SYRINGE (J1650 PER 10MG) SC SCH (08:51)
[2024-12-23] MEDS: PARoxetine 20MG TABLET PO SCH (08:51)
[2024-12-23] MEDS: LEVOTHYROXINE 150MCG TABLET (0.15MG) PO SCH (08:52)
[2024-12-23] MEDS ORDERED: ISOVUE-370 76% 100ML VIAL As Ordered ONE (09:36)
[2024-12-23] MEDS: ASPIRIN 81MG ENTERIC TABLET PO SCH (11:49)
[2024-12-23] MEDS: TIMOLOL MALEATE 0.5% OPHTH SOLN 5 ML OU SCH (13:01)
[2024-12-23] MEDS ORDERED: methylPREDNISolone 125MG 2ML VIAL IV SCH (14:00)
[2024-12-23] MEDS: LEVALBUTEROL 1.25MG 0.5ML CONCENTRATE NEB INH SCH (15:10)
[2024-12-23] MEDS: COMBIVENT RESPIMAT 100-20MCG INHALER 4GM INH SCH (15:10)
[2024-12-23] MEDS ORDERED: MIRALAX *UNIT DOSE* 17GM PACKET PO PRN (16:25)
[2024-12-23] MEDS ORDERED: MOM 30ML SUSPENSION UDC PO PRN (16:25)
[2024-12-23] MEDS: LACTULOSE 20GM/30ML SYRUP UDC PO SCH (17:44)
[2024-12-23] MEDS: SENOKOT S TAB PO SCH (17:44)
[2024-12-23] MEDS: LATANOPROST 0.005% OPHTH SOLN 2.5 ML OU SCH (19:59)
[2024-12-24] VITALS (7 sets, daily range): BP systolic 130–155; BP diastolic 75–88; TEMP 97.5–97.9; O2SAT 90–96
[2024-12-24 05:48] LABS: BASO # 0.1 10^3/uL (0.0-0.2); BASO % 0.3 % (0.0-1.0); EOS # 0.1 10^3/uL (0.0-0.5); EOS % 0.2 % (0.0-3.0); HEMATOCRIT 45.9 % (36.0-47.0); HEMOGLOBIN 15.3 g/dl (12.0-15.5); LYMPH # 1.6 10^3/uL (1.5-5.0); LYMPH % 8.2 % (24.0-44.0); MEAN CORPUSCULAR HEMOGLOBIN 29.5 pg (27.0-33.0); MEAN CORPUSCULAR HGB CONC 33.3 g/dl (32.0-36.5); MEAN CORPUSCULAR VOLUME 88.4 fl (80.0-96.0); MONO # 1.5 10^3/uL (0.0-0.8); MONO % 7.2 % (2.0-8.0); NEUTROPHILS # 16.3 10^3/uL (1.5-8.5); NEUTROPHILS % 81.7 % (36.0-66.0); PLATELET COUNT, AUTOMATED 271 10^3/uL (150-450); RED BLOOD COUNT 5.19 10^6/uL (4.00-5.40)
[2024-12-24 06:11] LABS: BLOOD UREA NITROGEN 25 MG/DL (9-23); CALCIUM LEVEL 8.8 MG/DL (8.3-10.6); CARBON DIOXIDE LEVEL 32 MMOL/L (20-31); CHLORIDE LEVEL 100 MMOL/L (98-107); CREATININE FOR GFR 0.83 MG/DL (0.55-1.30); GLOMERULAR FILTRATION RATE > 60.0 (>39); GLUCOSE, FASTING 83 MG/DL (74-106); MAGNESIUM LEVEL 2.3 MG/DL (1.8-2.4); POTASSIUM SERUM 4.5 MMOL/L (3.5-5.1); SODIUM LEVEL 139 MMOL/L (136-145)
[2024-12-24] MEDS: LevoFLOXacin 750 MG TABLET PO SCH (06:14)
[2024-12-24] MEDS: ONDANSETRON 4MG ORAL DISINTEGRATING TAB PO ONE (06:40)
[2024-12-24] MEDS: PANTOPRAZOLE 40MG TAB (PROTONIX) PO SCH (08:47)
[2024-12-24] MEDS: predniSONE 20 MG TAB PO SCH (08:47)
[2024-12-24] MEDS ORDERED: SENN-52 PO (10:38)
[2024-12-24] MEDS ORDERED: LEVO75TAB PO (10:38)
[2024-12-24] MEDS ORDERED: PRED10TA2 PO (10:38)
[2024-12-24] MEDS ORDERED: MUCI600T31 PO (10:38)
[2024-12-24] MEDS ORDERED: MIRA33506 PO (10:38)
[2024-12-24] MEDS ORDERED: IPRA0.00 INH (10:42)
[2024-12-24] MEDS ORDERED: ALBU2.5V10 INH (10:42)
[2024-12-24] MEDS ORDERED: PRED20TA PO (10:42)
[2024-12-24] MEDS ORDERED: ALBU8.5H INH (10:42)
[2024-12-24] MEDS ORDERED: FLUC150T9 PO (12:53)
== END 2024-12-24 14:30 | disposition home health service (06) ==
LOC: EDBD 17:29 → M ED 17:29 → M ED INP 17:30 → M MSPAV 12-23 16:05
PROVIDERS: ADMIT Student in an Organized Health Care Education/Training Program; ATTEND Internal Medicine
DX: J10.00 Influenza due to other identified influenza virus with unspecified type of pneumonia (principal); J96.01 Acute respiratory failure with hypoxia; B95.7 Other staphylococcus as the cause of diseases classified elsewhere; Z87.440 Personal history of urinary (tract) infections; I10 Essential (primary) hypertension; E05.00 Thyrotoxicosis with diffuse goiter without thyrotoxic crisis or storm; H40.9 Unspecified glaucoma; E78.5 Hyperlipidemia, unspecified; F17.210 Nicotine dependence, cigarettes, uncomplicated; Z80.1 Family history of malignant neoplasm of trachea, bronchus and lung; Z82.41 Family history of sudden cardiac death; Z82.49 Family history of ischemic heart disease and other diseases of the circulatory system; Z82.61 Family history of arthritis; Z88.0 Allergy status to penicillin; Z79.899 Other long term (current) drug therapy; Z79.82 Long term (current) use of aspirin; Z79.890 Hormone replacement therapy; Z79.52 Long term (current) use of systemic steroids
CPT/HCPCS: 36415; 36600; 71046; 71275; 80048; 80053; 82550; 82553; 82803; 83605; 83735; 83880; 84145; 84439; 84443; 84484; 85025; 86140; 87040; 87077; 87088; 87154; 87186; 87486; 87581; 87633; 87798; 93005; 94640; 96365; 96372; 96375; 99285; G0378; J1650; J1956; J2470; J2919; J7512; Q9967

== ENCOUNTER → 2025-01-06 | Outpatient (REF) | payer MEDICARE, MEDICAID ==
[~2025-01-06] MED LIST changes: +ALBU2.5V10 INH; +ALBU8.5H INH; +ASPI-226 PO; +FLUC150T9 PO; +IPRA0.00 INH; +LEVO150T7 PO; +LEVO75TAB PO; +MIRA33506 PO; +PRED20TA PO; +SENN-52 PO; +TIMO0.5S20 OU
== END ==
LOC: M LAB REF 13:14
PROVIDERS: ATTEND Internal Medicine
DX: G89.29 Other chronic pain (principal)

== ENCOUNTER → 2025-01-06 | Outpatient (CLI) | payer MEDICARE, MEDICAID | LOC: M WUC 12:06 | PROVIDERS: ATTEND Internal Medicine | DX: R06.02 Shortness of breath (principal); G89.29 Other chronic pain ==

== ENCOUNTER → 2025-03-24 | Outpatient (CLI) | payer MEDICARE, MEDICAID ==
[~2025-03-24] MED LIST changes: -BRIM1OPD OU; +BRIM5DRO25 OU
[2025-03-24 15:21] LABS: RSV AMPLIFICATION NEGATIVE (NEGATIVE)
== END ==
LOC: M WUC 12:33
PROVIDERS: ATTEND Internal Medicine
DX: R05.9 Cough, unspecified (principal); J44.1 Chronic obstructive pulmonary disease with (acute) exacerbation